=== PATIENT | female | born 1985 ===

== ENCOUNTER 2018-05-19 22:29 | Emergency (ER) | payer SELFPAY ==
[2018-05-19 22:35] VITALS: BP 121/69
--- NOTE | 2018-05-19 23:39 | ED PDOC ---
HPI: Influenza Time Seen by Provider: 05/19/18 23:09 Chief Complaint: ENT Problem Chief Complaint (Provider): fever, cough, body aches History Per: Patient Exam Limitations: no limitations Hx Influenza Vaccination: No Additional complaint(s):: 32 y/o F with no significant PMh who presents with cough for the past 2 days and body aches, sore throat, fever, KEATING that began today. She has not received the flu vaccine. She is having some chest pain with cough. Denies N/V, diarrhea, SOB, ear pain. She took Ibuprofen 400mg PO at 8pm tonight and took Tylenol earlier in the day. Past Medical History Reviewed: Historical Data, Nursing Documentation, Vital Signs Vital Signs: Last Vital Signs Temp 103.0 F H 05/19/18 22:41 Pulse 109 H 05/19/18 22:32 Resp 20 05/19/18 22:32 BP 121/69 05/19/18 22:32 Pulse Ox 97 05/19/18 22:32 - Medical History PMH: No Chronic Diseases - Family History Family History: States: Unknown Family Hx - Home Medications Home Medications: Ambulatory Orders Medication Instructions Recorded Ibuprofen [Motrin Tab] 600 mg PO Q6 PRN 7 Days tab 05/20/18 Oseltamivir Phosphate [Tamiflu] 75 mg PO BID 5 Days capsule 05/20/18 - Allergies Allergies/Adverse Reactions: Allergies Allergy/AdvReac Type Severity Reaction Status Date / Time No Known Allergies Allergy Verified 05/19/18 22:35 Review of Systems Constitutional: Positive for: Fever, Chills, Sweats ENT: Positive for: Throat Pain. Negative for: Ear Pain Cardiovascular: Positive for: Chest Pain. Negative for: Palpitations Respiratory: Positive for: Cough. Negative for: Shortness of Breath Gastrointestinal: Negative for: Nausea, Vomiting, Abdominal Pain, Diarrhea Neurological: Positive for: Headache Physical Exam - Reviewed Nursing Documentation Reviewed: Yes Vital Signs Reviewed: Yes - Physical Exam Appears: Positive for: Uncomfortable Head Exam: Positive for: ATRAUMATIC Skin: Positive for: Normal Color Eye Exam: Positive for: Conjunctival injection (mild b/l) ENT: Positive for: TM Is/Are (normal b/L), Nasal Congestion, Pharyngeal Erythema (mild). Negative for: Sinus Pain/Drainage, Tonsillar Exudate, Tonsillar Swelling Neck: Positive for: Normal, Painless ROM Cardiovascular/Chest: Positive for: Regular Rate, Rhythm Respiratory: Positive for: Normal Breath Sounds Neurologic/Psych: Positive for: Alert, Oriented Medical Decision Making Medical Decision Making: Tamiflu 75mg PO x 1 Tylenol 975mg PO x 1 Re-evaluated 00:18: fever improved to 101.1 from 103F, patient states that her KEATING has improved and is feeling somewhat better. Additional Ibuprofen 400mg PO x given. Stable for d/c home given improvement in VS. - ECG O2 Sat by Pulse Oximetry: 97 Disposition - Clinical Impression Clinical Impression: Influenza - Patient ED Disposition Is Patient to be Admitted: No - Disposition Referrals: [facility] [Outside] Disposition: Routine/Home Disposition Time: 00:24 Condition: STABLE Additional Instructions: Avoid close contact with others as you are very contagious. Take Tylenol and Ibuprofen for fevers and body pains/headache. Get lots of rest and drink plenty of fluids. Return to ER if you start to have trouble breathing or are unable to maintain oral hydration. Prescriptions: Ibuprofen [Motrin Tab] 600 mg PO Q6 PRN 7 Days tab PRN Reason: Fever >100.4 F Oseltamivir Phosphate [Tamiflu] 75 mg PO BID 5 Days capsule Instructions: Flu, Adult (DC) Forms: [employer] (Upper Sorbian) Print Language: QATARI
[2018-05-20 00:13] VITALS: PULSE 103; RESP 17; TEMP 101.1
[2018-05-20 00:24] VITALS: O2SAT 97
== END 2018-05-20 00:42 | disposition home or self-care (01) ==
LOC: H.ER 22:29
DX: J11.1 Influenza due to unidentified influenza virus with other respiratory manifestations (principal)